=== PATIENT | male | born 1955 | race African-American/Black ===

== ENCOUNTER 2017-02-02 10:42 | Emergency (ER) | payer OTHER ==
[~2017-02-02] VITALS: Ht 172.7 cm; Wt 103.5 kg
[2017-02-02 10:45] VITALS: Ht 172.7 cm; Wt 103.5 kg
--- NOTE | 2017-02-02 12:49 | RADRPT ---
PROCEDURE: XR Lumbar Spine. CLINICAL INDICATION: Low back pain TECHNIQUE: 3 views of the lumbar spine are available for review COMPARISON: None available FINDINGS: There is normal mineralization. There is a 3-4 mm L4 on L5 anterolisthesis. No fracture or osseous lesion is identified. There is mild L4-5 degenerative disk disease. This is associated with joint space narrowing, endplate sclerosis and spondylosis. There is moderate L4-S1 facet arthrosis. The soft tissues are unremarkable. IMPRESSION: 3-4 mm L4 on L5 anterolisthesis. Mild L4-5 degenerative disk disease. Moderate L4-S1 facet arthrosis RPTAT: [facility] .Von Bright MD, MD Date Time Electronically viewed and signed by .Von Bright MD, on 02/02/2017 12:49 .B/
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
== END 2017-02-02 13:41 | disposition home or self-care (01) ==
LOC: FTE 10:42
DX: M54.41 Lumbago with sciatica, right side (principal); F17.210 Nicotine dependence, cigarettes, uncomplicated; M54.42 Lumbago with sciatica, left side
CPT/HCPCS: 72100